=== PATIENT | female | born 1985 | race Caucasian/White ===

== ENCOUNTER 2016-12-04 13:20 | Emergency (ER) | payer SELFPAY ==
[2016-12-04] MEDS ORDERED: CEPHALEXIN500 M1 PO (15:30)
== END 2016-12-04 15:49 ==
LOC: EDMED 13:20
DX: T65.891A Toxic effect of other specified substances, accidental (unintentional), initial encounter (principal); T20.40XA Corrosion of unspecified degree of head, face, and neck, unspecified site, initial encounter; T23.402A Corrosion of unspecified degree of left hand, unspecified site, initial encounter; T23.401A Corrosion of unspecified degree of right hand, unspecified site, initial encounter; T32.0 Corrosions involving less than 10% of body surface; L25.9 Unspecified contact dermatitis, unspecified cause; F17.200 Nicotine dependence, unspecified, uncomplicated; Z98.51 Tubal ligation status